=== PATIENT | female | born 1995 | race Caucasian/White ===

== ENCOUNTER → 2016-10-01 14:50 | Observation (INO) ==
--- NOTE | 2016-10-01 14:38 | OB/GYN Progress Note ---
Date of Encounter: 10/01/16 Time of Encounter: 14:34 - Assessment and Plan (1) 31 weeks gestation of Current Visit: Yes Status: Acute (2) Vaginal discharge during in third trimester Current Visit: Yes Status: Acute Negative nitrazine, negative fern. Recent intercourse. Suspect normal discharge Subjective - Subjective Interval history: 21 year-old presenting at 31w5d presenting with c/o leaking fluid. She reports she lost her mucus plug yesterday morning and has been having some intermittent leaking of clear fluid since. No other complaints. No contractions or VB. Good FM. Antepartum ROS: loss of fluid, movement normal, no vaginal bleeding, no contractions Objective - Vital Signs Vital Signs: Intake and Output 09/30/16 10/01/16 10/01/16 23:59 07:59 15:59 Other: Weight 83.7 kg Patient Weight 10/01/16 23:59 Weight 83.7 kg - Exam FHR: category 1 FHR comments: NST reactive Auscultation: bilateral: normal Abdomen: Present: soft, gravid Uterus: Present: normal. Absent: tenderness Cervical dilation: closed Comments: SSE: scant amount thin, clear discharge noted in vault. Negative nitrazine, negative fern.
== END | disposition home or self-care (01) ==
LOC: 1NENULAB
PROVIDERS: ADMIT Obstetrics & Gynecology; ATTEND Obstetrics & Gynecology

== ENCOUNTER → 2016-10-07 23:35 | Observation (INO) ==
--- NOTE | 2016-10-07 20:45 | OB/GYN Progress Note ---
Date of Encounter: 10/07/16 Time of Encounter: 20:44 - Assessment and Plan (1) 32 weeks gestation of Current Visit: Yes Status: Acute (2) Premature uterine contractions in third trimester, antepartum Current Visit: Yes Status: Acute Contractions seen on monitor every 4-6min Will monitor 1L LR bolus, then 125 UA Contractions continued, no cervical change on follow-up exam. Kami Calzada CNM updated Dr. Romeo--new order to give Terbutaline x1, Dr. Romeo states if contractions stop for 1h, may discharge home. Contractions did decrease in intensity and frequency after terbutaline. Pt states only feels slight contractions, nothing as strong. Discussed with Dr. Romeo contraction pattern and pt reporting and no cervical change. Okay to discharge home with labor precautions. Reviewed with patient who verbalize understanding. (3) NST (non-stress test) reactive Current Visit: Yes Status: Acute Baseline 150 Subjective - Subjective Principal diagnosis: Contractions affecting labor Interval history: , 32+4, presents to L&D for evaluation of labor. Pt reports mild contractions presenting as back pain that at its most frequent, occurred approx. q6min since the last day increasing in intensity tonight, patient concerned she may be having contractions. Pt rates pain 3/10, reports good movement; denies sexual intercourse in the last 4 days, LOF/vaginal bleeding, dysuria/urgency/frequency with urination, Labs: GBS planned future GA, negative HIV, HepB, GC, Chlam, Syphilis Immune: Rubella Non-immune: VZV reported equivocal Bld Type: A+ Antepartum ROS: movement normal, contractions (presenting as back pain), no loss of fluid, no vaginal bleeding Objective - Vital Signs Vital Signs: Intake and Output 10/07/16 10/07/16 10/07/16 07:59 15:59 23:59 Other: Weight 86.7 kg Patient Weight 10/07/16 23:59 Weight 86.7 kg - Exam FHR: auscultation normal FHR comments: baseline 150 Auscultation: bilateral: normal Abdomen: Present: soft, gravid Cervical dilation: fingertip/50/-3 per Kami Calzada CNM unchanged on f/u exam
[2016-10-07 20:50] LABS: Bilirubin,Urine Negative (Negative); Blood,Urine Negative (Negative); Clarity,Urine Clear (Clear); Color,Urine Yellow (Yellow); Glucose,Urine (UA) Normal (Normal); Ketones,Urine Negative (Negative); Leukocyte Esterase,Urine Negative (Negative); Nitrite,Urine Negative (Negative); PH,Urine 6.5 pH Units (5.0-8.0); Protein,Urine Negative (Neg-Trace); Urobilinogen,Urine Normal (Normal)
[~2016-10-07 23:35] MED LIST: Ringers Solution, Lactated 1,000 ML IVC ONE; Ringers Solution, Lactated 1,000 ML ONE; Terbutaline 1 MG/ML VIAL SQ ONE
== END | disposition home or self-care (01) ==
LOC: 1NENULAB
PROVIDERS: ADMIT Obstetrics & Gynecology; ATTEND Obstetrics & Gynecology

== ENCOUNTER → 2016-10-08 17:20 | Observation (INO) ==
--- NOTE | 2016-10-08 14:40 | OB/GYN Progress Note ---
Date of Encounter: 10/08/16 Time of Encounter: 14:36 - Assessment and Plan (1) Back pain affecting in third trimester Current Visit: Yes Status: Acute Suspect musculoskeletal pain. Comfort measures discussed. SVE ft/thick/high. Rare contractions. Pt reports pain significantly improved with flexeril. Discharge home with precautions. (2) 32 weeks gestation of Current Visit: No Status: Acute Subjective - Subjective Interval history: 21 year-old presenting at 32w5d with c/o back pain. She reports constant pain in upper middle back that is intermittently worse. She denies any other complaints including LOF or VB. No c/o abdominal pain or cramping. Good FM. No urinary sx. No vaginal disharge, itching, or burning. UA yesterday WNL. No hematuria or leukocytes in urine. Antepartum ROS: movement normal, no loss of fluid, no vaginal bleeding, no contractions Objective - Vital Signs Vital Signs: Intake and Output 10/07/16 10/08/16 10/08/16 23:59 07:59 15:59 Other: Weight 86.7 kg Patient Weight 10/08/16 23:59 Weight 86.7 kg - Exam FHR: category 1 FHR comments: NST reactive. Abdomen: Present: soft, gravid. Absent: tenderness Uterus: Absent: tenderness Cervical dilation: ft Cervix effacement: thick station: high Comments: Pt reports tenderness along thoracic spine. No CVAT.
== END | disposition home or self-care (01) ==
LOC: 1NENULAB
PROVIDERS: ADMIT Student in an Organized Health Care Education/Training Program; ATTEND Student in an Organized Health Care Education/Training Program

== ENCOUNTER 2016-11-22 10:06 | Inpatient (IN) ==
[2016-11-22] MEDS ORDERED: Ringers Solution, Lactated 1,000 ML ONE ×4 (10:57→23:44)
[2016-11-22] MEDS ORDERED: Famotidine 20 MG/2 ML VIAL IVP ONE (10:58)
[2016-11-22] MEDS ORDERED: Clindamycin 900 MG/50 ML 900 MG/50 ML IV.SOLN IVPB ONE (10:58)
[2016-11-22] MEDS ORDERED: Metoclopramide 10 MG/2 ML VIAL IVP ONE (10:58)
[2016-11-22] MEDS: Ringers Solution, Lactated 1,000 ML IVC ONE ×2 (11:04→11:40)
[2016-11-22 11:11] LABS: Basophils % 0.2 %; Eosinophils # 0.1 K/mcL (0.0-0.6); Eosinophils % 1.2 %; Hematocrit 37.2 % (35.3-44.9); Hemoglobin 12.3 g/dL (11.5-15.4); Immature Granulocytes % 0.6 % (0-4); Lymphocytes # 1.4 K/mcL (0.6-4.6); Lymphocytes % 15.6 %; Mean Corpuscular HGB Conc 33.1 g/dL (31.6-35.5); Mean Corpuscular Hemoglobin 27.7 pg (28.0-33.3); Mean Corpuscular Volume 83.8 fL (83.0-100.0); Mean Platelet Volume 9.7 fL (9.4-12.4); Monocytes # 0.6 K/mcL (0.0-1.3); Monocytes % 6.2 %; Neutrophils # 6.8 K/mcL (1.6-8.9); Platelet Count 230 K/mcL (140-400); Red Blood Count 4.44 M/mcL (3.82-4.97); Red Cell Distribution Width 13.6 % (11.5-14.5); Segmented Neutrophils % 76.2 %
[2016-11-22 11:18] LABS: Amphetamine Screen,Urine Negative ng/mL (Cutoff=1000); Barbiturate Screen,Urine Negative ng/mL (Cutoff=200); Benzodiazepines Screen,Urine Negative ng/mL (Cutoff=200); Cannabinoid Screen,Urine Negative ng/mL (Cutoff = 50); Cocaine Screen,Urine Negative ng/mL (Cutoff= 300); Opiate Screen,Urine Negative ng/mL (Cutoff=300); Phencyclidine Screen,Urine Negative ng/mL (Cutoff=25)
--- NOTE | 2016-11-22 11:56 | OB/GYN History & Physical ---
Date of Encounter: 11/22/16 Time of Encounter: 11:54 Assessment and Plan (1) 39 weeks gestation of Current visit: Yes Status: Acute (2) Breech presentation Current visit: Yes Status: Acute Qualifiers: Fetus number: single or unspecified fetus Qualified Code(s): O32.1XX0 - Maternal care for breech presentation, not applicable or unspecified History of Present Illness HPI: Ms. Ramos is a 21 year old female Patient is a 21-year-old 2 para 1 white female is admitted for primary section for breech. She is 39 weeks and 1. She had limited ultrasound earlier today which confirms presence of the breech. She been followed in our office without any significant problems. She denies spontaneously SROM , reports active fetus and denies contractions. Past Med Surg Social Fam HX - Past Medical History Medical history: non-contributory Psychiatric history: no psych history - Past Surgical History Surgical History: no surgical history - Social History Smoking Status: Never smoker Smokeless Tobacco Status: No Alcohol use: none Drug use: none - Family History Mother History Unknown: Yes Adopted: No Living Status: Still Living Hx Family Cardiac Disorders: No Hx Family Respiratory Disorders: No Hx Family Cancer: No Hx Family GI Disorders: No Hx Family Endocrine Disorder: Yes Hx Family Neuromuscular Disorders: No Hx Family Neurologic Disorders: No Hx Family HEENT Disorders: No Hx Family Autoimmune Disorders: No Obstetrical History - Pregnancies : 2 Para: 1 Medications and Allergies Tablet 1 tab PO DAILY #60 10/30/14 [Rx] Ferrous Sulfate [Iron] 1 tab PO BID 10/01/16 [History] Zantac 10/07/16 [History] Cyclobenzaprine [Flexeril] 10 mg PO BID PRN #5 tablet 10/08/16 [Rx] 3 Allergy/AdvReac Type Severity Reaction Status Date / Time Amoxicillin Allergy Hives Verified 10/01/16 13:16 Review of System OB All systems PM: reviewed and no additional remarkable complaints except as stated - Genitourinary Genitourinary: amenorrhea - Menstruation Menstruation: amenorrhea Exam - Constitutional Constitutional: well developed, well nourished, obese - HEENT HEENT: Normocephaly - Neck Neck exam: full ROM - Lungs Respiratory exam: CTAB - Cardiovascular Cardiovascular exam: RRR - Abdomen Abdomen: Present: gravid, non tender - Extremities Extremities exam: full ROM Deep Tendon Reflex Grade: 1+ Diminished - Vulva Vulva: left: normal - Vagina Vagina: Present: normal moisture - Cervix Dilation: 1 Effacement: 25 Station: -2 Results Result Diagrams: 11/22/16 11:01 Abnormal lab results MCH 27.7 pg (28.0-33.3) L 11/22/16 11:01 All other labs normal.
[2016-11-22] MEDS ORDERED: EPHEDrine 50 MG/ML VIAL ONE (12:29)
[2016-11-22] MEDS ORDERED: *HR* Morphine Sulfate/PF 5 MG/10 ML AMPUL ONE (12:29)
[2016-11-22] MEDS ORDERED: *HR* FentaNYL (PF) 100 MCG/2 ML VIAL ONE (12:29)
[2016-11-22] MEDS ORDERED: *HR* Oxytocin 10 UNIT/ML VIAL IM ONE ×2 (12:32→13:18)
[2016-11-22] MEDS ORDERED: Water for inj. (sterile) 10 ML IV ONE (12:32)
--- NOTE | 2016-11-22 13:14 | Anesthesia Evaluation PreOp ---
Date of Encounter: 11/22/16 Time of Encounter: 11:32 - Past History Planned Operation: primary c section Cardiac History: Denies any Significant Hx Pulmonary History: Denies Any Significant HX [employer] History: Denies Any Significant HX Other Medical History: Denies Any Significant HX Anesthesia History: No Prior Anesthetic Complications (never had general anesthesi. Denies any family history of anesthetic problems. Previous epidural, no complications.) : Yes Alcohol Use: none Drug use: none Medications and Allergies Tablet 1 tab PO DAILY #60 10/30/14 [Rx] Ferrous Sulfate [Iron] 1 tab PO BID 10/01/16 [History] Zantac 10/07/16 [History] Cyclobenzaprine [Flexeril] 10 mg PO BID PRN #5 tablet 10/08/16 [Rx] 3 Allergy/AdvReac Type Severity Reaction Status Date / Time Amoxicillin Allergy Hives Verified 10/01/16 13:16 - Meds/Allergy Pre-op Review Medications Reviewed: Yes Allergies Reviewed: Yes Beta Blockers on Current Med List: No Anesthesia Results - Labs 11/22/16 11:01 Anesthesia Exam VSS and FHTs stable Height: 5'5" Weight: 91 kg NPO (# of Hours): >8 Pain Scale: 0 Pain Scale Used: Numeric (1 - 10) - HEENT Pupil (Motor): Pupils equal, EOMI Mallampati: II Teeth: Normal (rg), Poor dentition (s chipped upper front teeth) Oral Opening: Greater than 3 - [employer]SEL[employer] LOC: Oriented [employer] Motor: Normal RUE, Normal LUE, Normal RLE, Normal LLE, Normal Face [employer]SELOR Sensory: Normal: RUE, LUE, RLE, LLE, Face - Cardiac Rhythm: Regular - Pulmonary Breath Sounds: bilateral Clear Respiratory Effort: Symmetrical Anesthesia Assess/Plan ASA Score: 2 Modified [place] Scale for Level of Consciousness: Cooperative, oriented, and tranquil Anesthetic Plan: Regional Monitoring Plan: Standard Monitors Recovery Plan: PACU
[2016-11-22] MEDS ORDERED: *HR* Promethazine 25 MG/ML VIAL IVP PRN (13:26)
[2016-11-22] MEDS ORDERED: Ondansetron 4 MG/2 ML VIAL IVP ONE (13:26)
[2016-11-22] MEDS ORDERED: *HR* HYDROmorphone (PF) 1 MG/ML SYRINGE IVP PRN ×2 (13:26→15:23)
[2016-11-22] MEDS ORDERED: *HR* Morphine 2 MG/ML SYRINGE IVP PRN ×2 (13:26→15:23)
[2016-11-22] MEDS ORDERED: Acetaminophen IV 1,000 MG/100 ML INFUS..BTL IVPB ONE (13:27)
[2016-11-22] MEDS ORDERED: Simethicone 80 MG TAB.CHEW PO PRN (13:55)
[2016-11-22] MEDS ORDERED: Ondansetron 4 MG/2 ML VIAL IVP PRN ×2 (13:55→22:07)
[2016-11-22] MEDS ORDERED: *HR* OxyCODONE/APAP 5/325 TABLET PO PRN (13:55)
[2016-11-22] MEDS ORDERED: Ibuprofen 600 MG TABLET PO PRN (13:55)
[2016-11-22] MEDS ORDERED: Metoclopramide 10 MG/2 ML VIAL IVP PRN (13:55)
[2016-11-22] MEDS ORDERED: Sennosides 8.6 MG TABLET PO PRN (13:55)
[2016-11-22] MEDS ORDERED: Oxytocin 20 units/ LR 1000 mL 20 UNIT/1,000 ML BAG IVC SCH (14:00)
--- NOTE | 2016-11-22 14:26 | OB/GYN Procedure Note ---
Section - Date of procedure: 11/22/16 Preop diagnosis: breech Post-op diagnosis: other (Large bowel mass) Procedure: primary low transverse, other (Resection of large bowel mass) Surgeon: Octaviano Fonseca Estimated blood loss (cc): 700 Competitive Intelligence Analyst: Aissatou Viramontes Anesthesia Type: Spinal section complications: none Disposition: PACU Specimens: Placenta - (s) Infant A Infant Delivery Date: 11/22/16 Infant Delivery Time: 13:07 Presentation: breech Gender: Female Viability: Viable Pounds: 8 Ounces: 2 Gram Weight: 3.695 kg at 1 minute: 8 at 5 minutes: 9 Shoulder Dystocia: not encountered Placenta: complete extraction - Narrative Narrative: Patient was taken to the operating room. After satisfactory spinal anesthesia was achieved, patient placed in supine position and Kaur catheter inserted and prepped and draped in usual manner. After appropriate timeout, the abdomen was entered through standard Maylard incision. The Gilbert retractor was placed. Peritoneum overlying the lower uterine segment was incised in U-shaped fashion. Uterine cavity was entered sharply and extended laterally. Fluid was clear. With fundal pressure the buttocks delivered legs delivered arms delivered and head delivered. suctioned upon delivery of the head. The umbilical cord doubly clamped and cut and the infant was handed to nurse staff further evaluation. The placenta was removed and sent to pathology for analysis. Uterus was closed in single layer using 0 Monocryl. Tubes and ovaries. Normal. On the large bowel that was an abnormal appearing mass. The base of this was ligated and it was resected and sent to pathology for analysis. After assurance of hemostasis, the abdomen was closed using 0 Vicryl in the fascia and 3-0 Monocryl on the skin. Sterile dressing was applied. Patient did well was taken to recovery room satisfactory condition. Counts were correct.
--- NOTE | 2016-11-22 14:52 | Anesthesia Evaluation Post Op ---
Date of Encounter: 11/22/16 Time of Encounter: 14:45 - Vital Signs Vital Signs: VSS - Lungs Lungs: Clear Ascult./Percussion - Airway Airway: Non-obstructed - Cardiovascular Regular Rate - Mental Status Mental Status: Alert & Oriented, Answers Appropriately - Pain Pain Scale: 0 Pain Scale used: Numeric (1 - 10) - Nausea Vomiting Nausea Vomiting: Not Present - Hydration Hydration: NPO, Kaur catheter - Discharge PostOp Status: Transfer Patient to floor
[2016-11-22] MEDS ORDERED: Ondansetron 4 MG/2 ML VIAL ONE (22:10)
--- NOTE | 2016-11-23 07:56 | OB/GYN Progress Note ---
Date of Encounter: 11/23/16 Time of Encounter: 07:53 - Assessment and Plan (1) Status post section Current Visit: Yes Status: Acute s/p C/S POD #1, patient doing well, cont current inpt care, d/c tomorrow Subjective - Subjective Patient reports: appetite normal, voiding normally, pain well controlled, ambulating normally [place]: doing well Objective - Vital Signs Latest vital signs: Vital Signs Temp Pulse Resp BP Pulse Ox 11/23/16 02:37 97.5 F L 105 16 113/78 97 11/22/16 23:25 98.5 F 98 16 133/88 100 11/22/16 19:30 97.6 F 94 18 130/83 98 11/22/16 18:15 98.3 F 104 16 121/76 96 11/22/16 17:15 98.4 F 100 16 122/76 97 11/22/16 16:45 98.3 F 100 16 120/76 98 11/22/16 16:15 99.5 F 96 18 122/77 Intake and Output 11/22/16 11/22/16 11/23/16 15:59 23:59 07:59 Intake Total 1000 / 1000 700 / 700 700 / 700 Output Total 751 / 751 1500 / 1500 Balance 1000 / 1000 -51 / -51 -800 / -800 Intake: IV Fluids 1000 / 1000 100 / 100 Lactated Ringers 1,000 ML @ 1000 / 1000 3750 mls/hr IVC .Q16M ONE Rx#: [id number] Ofirmev 1,000 mg/100 ml 1,000 100 / 100 mg In 100 ml @ 400 mls/hr IVPB ONCE ONE Rx#:[id number] Oral 600 / 600 700 / 700 Output: Urine 400 / 400 2-way Urethral 400 / 400 Emesis / Catheter 350 / 350 1500 / 1500 Other: Weight 90.9 kg 85.729 kg Patient Weight 11/23/16 23:59 Weight 85.729 kg - Exam Lungs: bilateral: normal Chest: Normal S1, Normal S2 Extremities: Present: normal Abdomen: Present: normal appearance Incision: Present: dressed (LUIS A) Uterus: Present: normal - Labs Labs: Laboratory Results - last 24 hr 11/22/16 11/22/16 11:01 11:01 WBC 8.9 RBC 4.44 Hgb 12.3 Hct 37.2 MCV 83.8 MCH 27.7 L MCHC 33.1 RDW 13.6 Plt Count 230 MPV 9.7 Immature Gran % 0.6 Seg Neutrophils % 76.2 Lymphocytes % 15.6 Monocytes % 6.2 Eosinophils % 1.2 Basophils % 0.2 Neutrophils # 6.8 Lymphocytes # 1.4 Monocytes # 0.6 Eosinophils # 0.1 Basophils # 0.0 Urine Opiates Screen Negative Ur Barbiturates Screen Negative Ur Phencyclidine Scrn Negative Ur Amphetamines Screen Negative U Benzodiazepines Scrn Negative Urine Cocaine Screen Negative U Marijuana (THC) Screen Negative
[2016-11-23] MEDS ORDERED: *HR* OxyCODONE/APAP 5/325 TABLET PO PRN (08:38)
[2016-11-23] MEDS ORDERED: Sennosides 8.6 MG TABLET PO PRN (08:38)
[2016-11-23] MEDS ORDERED: Simethicone 80 MG TAB.CHEW PO PRN (08:38)
[2016-11-23] MEDS ORDERED: Ondansetron 4 MG/2 ML VIAL IVP PRN (08:38)
[2016-11-23] MEDS ORDERED: Metoclopramide 10 MG/2 ML VIAL IVP PRN (08:38)
[2016-11-23] MEDS: Prenatal Vit/FA 1 EACH TABLET PO SCH (08:42)
[2016-11-23] MEDS ORDERED: Oxytocin 20 units/ LR 1000 mL 20 UNIT/1,000 ML BAG IVC SCH (08:45)
[2016-11-23] MEDS: Ibuprofen 600 MG TABLET PO PRN ×3 (08:54→23:31)
[2016-11-23] MEDS ORDERED: Prenatal Vit/FA 1 EACH TABLET PO SCH ×2 (09:00)
[2016-11-23] MEDS: Famotidine 20 MG TABLET PO SCH (20:24)
[2016-11-24] MEDS: Ibuprofen 600 MG TABLET PO PRN (05:34)
[2016-11-24] MEDS: Famotidine 20 MG TABLET PO SCH (08:13)
[2016-11-24] MEDS: Prenatal Vit/FA 1 EACH TABLET PO SCH (08:13)
[2016-11-24 08:29] VITALS: BP 121/80
--- NOTE | 2016-11-24 09:38 | Discharge Summary ---
Date of Encounter: 11/24/16 Time of Encounter: 09:30 - Discharge Diagnosis (1) 39 weeks gestation of Priority: Primary Status: Acute (2) Breech presentation Priority: Secondary Status: Resolved Qualifiers: Fetus number: single or unspecified fetus Qualified Code(s): O32.1XX0 - Maternal care for breech presentation, not applicable or unspecified (3) Status post section Priority: Secondary Status: Acute - Discharge Medications Prescriptions: OxyCODONE/APAP 5/325 [Percocet 5/325 MG] 1 each PO Q4HR PRN #10 tablet PRN Reason: Moderate pain 4-6 Ibuprofen [Motrin] 600 mg PO Q6HR PRN #40 tablet PRN Reason: Cramping Breast Pump [BREAST PUMP] 1 each .ROUTE AD #1 each Home Medications: Tablet 1 tab PO DAILY #60 10/30/14 [Rx] Ferrous Sulfate [Iron] 1 tab PO BID 10/01/16 [History] Zantac 10/07/16 [History] Cyclobenzaprine [Flexeril] 10 mg PO BID PRN #5 tablet 10/08/16 [Rx] Breast Pump [BREAST PUMP] 1 each .ROUTE AD #1 each 11/23/16 [Rx] Ibuprofen [Motrin] 600 mg PO Q6HR PRN #40 tablet 11/24/16 [Rx] OxyCODONE/APAP 5/325 [Percocet 5/325 MG] 1 each PO Q4HR PRN #10 tablet 11/24/16 [Rx] Allergies/Adverse Reactions: 3 Allergy/AdvReac Type Severity Reaction Status Date / Time Amoxicillin Allergy Hives Verified 10/01/16 13:16 Data Procedures and tests throughout hospitalization: Laboratory Tests 11/22/16 11/22/16 11:01 11:01 WBC 8.9 RBC 4.44 Hgb 12.3 Hct 37.2 MCV 83.8 MCH 27.7 L MCHC 33.1 RDW 13.6 Plt Count 230 MPV 9.7 Immature Gran % 0.6 Seg Neutrophils % 76.2 Lymphocytes % 15.6 Monocytes % 6.2 Eosinophils % 1.2 Basophils % 0.2 Neutrophils # 6.8 Lymphocytes # 1.4 Monocytes # 0.6 Eosinophils # 0.1 Basophils # 0.0 Urine Opiates Screen Negative Ur Barbiturates Screen Negative Ur Phencyclidine Scrn Negative Ur Amphetamines Screen Negative U Benzodiazepines Scrn Negative Urine Cocaine Screen Negative U Marijuana (THC) Screen Negative Date of admission: 11/22/16 10:06 Primary care physician: PCP NONE Discharging clinician: Ashley Celis Anticipated date of discharge: 11/24/16 - Patient Status Disposition: Home, Self-Care Condition: Good Functional capacity at discharge: independent ambulation Overall status at discharge: patient is progressing back to baseline - Discharge Instructions Follow Up With: Octaviano Fonseca MD [Partnered Physician] - - Diet and Activity Activity: resume usual activities as tolerated Diet: advance to your usual diet Hospital Course Reason for admission: IUP at term, other (malpresentation) Delivery: section complications: none Discharge diagnosis: IUP at term delivered [place] baby: female Time Attestation: Total time spent providing and/or coordinating discharge services: Time Spent: Less than 30 minutes - VTE Documentation of Mechanical Device: Intermittent pneumatic compression device Exam - Constitutional Vitals: Temp Pulse Resp BP Pulse Ox 98.0 F 80 16 121/80 98 11/24/16 07:30 11/24/16 07:30 11/24/16 07:30 11/24/16 07:30 11/24/16 07:30 General appearance IM: A&O X 3, pleasant, no acute distress - Respiratory Respiratory exam: Present: CTAB - Cardiovascular Cardiovascular exam IM: Present: RRR - GI/Abdominal Incision: dressed (Melina dressing in place) - Uterine Tone: Firm - Extremities Exam Extremities exam IM: Absent: calf tenderness - Neurological Exam Neurological exam: oriented X3
== END 2016-11-24 12:30 | disposition home or self-care (01) | DRG 540 ==
LOC: 1NENULAB 10:06 → 1NENUOBS 16:07
PROVIDERS: ADMIT Obstetrics & Gynecology; ATTEND Obstetrics & Gynecology